=== PATIENT | male | born 1955 | race Caucasian/White ===

== ENCOUNTER 2018-07-05 12:55 | Emergency (ER) | payer OTHER, SELFPAY ==
[2018-07-05 12:56] VITALS: BP 134/70; PULSE 64; RESP 16; TEMP 36.2; O2SAT 98; BMI 21.2
[2018-07-05 13:32] LABS: Absolute Lymphocyte Count 1.28 X10^3/ul (0.83-4.51); Absolute Neutrophil Count 1.8 X10^3/uL (2.0-7.7); Basophil# 0.04 X10^3/uL; Basophil% 1.1 % (0-1); Eosinophils% 5.3 % (0-5); Hematocrit 38.1 % (40-54); Hemoglobin 12.8 g/dl (13.0-16.5); Lymphocyte # 1.28 X10^3/ul (4.0); Lymphocyte % 33.8 % (19-41); Mean Corp Hgb Conc 33.6 g/gl (32-36); Mean Corpuscular Hgb 28.7 pg (27.0-32.0); Mean Corpuscular Volume 85.4 fL (80-94); Mean Platelet Vol. 8.9 fl (6.2-12.0); Monocyte% 13.2 % (0-10); Neutrophil # 1.77 X10^3/uL (2.7-7.7); Neutrophil % 46.6 % (47-70); Platelet Count 291 K/mm3 (150-450); RBC Distribution Width CV 14.1 % (11.6-14.6); RBC Distribution Width SD 43.4 fl (35.1-43.9); Red Blood Count 4.46 M/mm3 (4.6-6.2); White Blood Count 3.8 K/mm3 (4.4-11.0)
[2018-07-05 13:38] LABS: POSITIVE COUNT NO; POSITIVE DIFFERENTIAL NO; POSITIVE MORPHOLOGY NO
[2018-07-05 13:46] LABS: Anion Gap 6 (5-15); BUN 19 mg/dL (7-18); BUN/Creat Ratio 18.8 RATIO (10-20); Calcium,Total 8.6 mg/dL (8.5-10.1); Chloride 107 mmol/L (98-107); Creatinine, Serum 1.01 mg/dL (0.70-1.30); EST Glomerular Filtration Rate 79 mL/min (>60); Est Glom Filt Rate - Afr Amer 96 mL/min (>60); Estimated Creatinine Clearance 68.11 ml/min; Glucose 82 mg/dL (74-106); Potassium 4.2 mmol/L (3.5-5.1); Sodium Level 139 mmol/L (136-145)
--- NOTE | 2018-07-05 13:56 | EKG12_ITS ---
Test Reason : CP Blood Pressure : / mmHG Vent. Rate : 059 BPM Atrial Rate : 059 BPM P-R Int : 142 ms QRS Dur : 086 ms QT Int : 406 ms P-R-T Axes : 061 054 052 degrees QTc Int : 401 ms Sinus bradycardia Otherwise normal ECG Confirmed by EDITH LUGO, GIGI ([id number]), manuscript editor ANNABEL SEQUEIRA ([id number]) on 07/09/2018 10:27:40 AM Referred By: RACIEL/ANIRUDH Confirmed By:GIGI SHARMA MD
--- NOTE | 2018-07-05 13:56 | CT_ITS ---
STUDY: CT ABDOMEN AND PELVIS WITHOUT CONTRAST REASON FOR EXAM: Male, 62 years old. Abdominal pain. Decreased hemoglobin. RADIATION DOSAGE (If Supplied By Facility): CTDIvol = ( 7.69 ) mGy, DLP = ( 330.93 ) mGycm TECHNIQUE: Transaxial images were obtained from the dome of the diaphragm to the symphysis pubis without oral contrast, and without intravenous contrast. Sagittal and coronal images were reconstructed. Individualized dose optimization techniques were used for this CT. COMPARISON: None. FINDINGS: The visualized lung bases are unremarkable. The visualized portions of the heart are within normal limits. Focal dense calcifications seen in the inferior lateral portion of the right lobe of liver most likely representing calcified granulomas. Normal gallbladder and extrahepatic biliary system. Normal spleen. Normal pancreas. Normal bilateral adrenal glands. Normal right kidney. 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 Normal left kidney. There is a small hiatal hernia. Normal small intestine. Normal colon. The appendix is visualized and appears normal. There is scattered atherosclerotic calcification of the abdominal aorta, without a demonstrated aneurysm. Normal inferior vena cava. Normal retroperitoneum. Normal urinary bladder. There are prostatic calcifications. The prostate measures 4.7 cm x 3.1 cm. Normal abdominal wall. There are mild degenerative changes of the visualized lumbar spine. CT/Abdomen/Pelvis without Cont IMPRESSION: Calcified granulomas in the inferior lateral aspect of the right lobe of the liver. 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 Electronically Signed: Dhruv Engle, at 15:50 EDT , Service support ,
[2018-07-05 14:18] LABS: AST(SGOT) 21 U/L (15-37); Alanine Aminotransfer ALT/SGPT 25 U/L (16-61); Albumin, Serum 3.7 g/dL (3.2-5.0); Alkaline Phosphatase 70 U/L (45-117); Bilirubin, Direct 0.07 mg/dL (0.00-0.30); Globulin 3.4 g/dL (2.2-4.2); Lipase 119 U/L (73-393); Protein, Total 7.1 g/dL (6.4-8.2)
--- NOTE | 2018-07-05 14:24 | ED.VISSUMM ---
- ER Visit Summary Date of Service: 07/05/18 Chief Complaint: [] Abdominal pain for months generalized fatigue History of Present Illness: The patient is a 62 M [] has no past history indicates for months has had generalized fatigue intermittent abdominal pain, he had outpatient life scan screening which consisted of what appears to be some screening labs, and ultrasounds of the aorta and other ultrasounds that showed no signs of AAA or peripheral vascular disease he had an elevated testosterone level hemoglobin A1c was 6.7, and he indicates his hemoglobin was low. He tried to make an appoint with her primary care physician and he was instructed it would be better for him to come to the emergency department, he has had no vomiting he is able to eat and drink in general he does not see a physician, he has no known health history Physical Examination: [] 130/70 General, no distress resting comfortably HEENT is generally unremarkable The neck is supple no adenopathy Cardiovascular, regular rate and rhythm Lungs, clear bilateral Abdomen, soft nontender, he has some slight distention to the lower abdominal region, rectal exam shows soft brown stool, exam shows normal testicles nontender Extremities, no clubbing cyanosis or edema Neurologic, awake alert answering questions appropriately moving all 4 extremities Test Results: [] Emergency Department Course and Treatment: [] Given his complaints and his age screening labs CT ultrasound of the scrotum Treatment Plan: [] Disposition: [] Impression: [] This note was generated with [facility] dictation software. It may contain incorrect words, spelling, and punctuation that were not noted in review of the chart prior to signing ED Disposition - Plan for ED Patient: Referrals: NOT,DEFINED [Primary Care Provider] -
--- NOTE | 2018-07-05 14:27 | US_ITS ---
STUDY: SCROTUM ULTRASOUND REASON FOR EXAM: Male, 62 years old. Lower abdominal pain. TECHNIQUE: Ultrasound evaluation of the scrotum was performed with color Doppler and static whitlock-scale imaging. COMPARISON: None. FINDINGS: RIGHT TESTICLE INTRATESTICULAR: There is a normal size of the right testicle. The right testicle measures 4.0 cm x 2.9 cm x 2.5 cm. There is a homogenous echotexture. There is normal arterial and normal venous vascularity. There is no demonstrated right testicular mass or cyst. EXTRATESTICULAR: The epididymis is normal in size. The epididymis head measures 1.7 cm. There is normal vascularity of the epididymis. There is a well-defined cystic structure within the epididymis, without internal echoes, consistent with an epididymal cyst. This measures 3 mm x 3 mm x 3 mm. There is a small hydrocele. There is no demonstrated varicocele. There is no demonstrated extratesticular mass or cyst. LEFT TESTICLE INTRATESTICULAR: There is a normal size of the left testicle. The left testicle measures 4.4 cm x 3.2 cm x 2.6 cm. There is a homogenous echotexture. There is normal arterial and normal venous vascularity. There is no demonstrated left testicular mass or cyst. EXTRATESTICULAR: The epididymis is normal in size. The epididymis head measures 1.6 cm. There is normal vascularity of the epididymis. There is a well-defined cystic structure within the epididymis, without internal echoes, consistent with an epididymal cyst. There is a septated 2.2 cm x 2.1 cm x 1.5 cm left epididymal cyst. There is no demonstrated hydrocele. There is no demonstrated varicocele. There is no demonstrated extratesticular mass or cyst. US/Testicular with Arterial Flow IMPRESSION: Septated 2.2 cm x 2.1 cm x 1.5 Jose G left epididymal cyst. Electronically Signed: Dhruv Engle, at 15:56 EDT , Service support ,
[2018-07-05 15:41] LABS: Bacteria 0 SEEN /hpf (None Seen); Mucous, Urine 0 SEEN /hpf (<or=2+); Red Blood Cells-Urine 0 SEEN /hpf (0-5)
[2018-07-05 15:44] LABS: Color, Urine Straw (Yellow); Glucose, Dipstick Normal (Normal); Ketone-Dipstick Negative (Negative); Leukocyte Esterase-Dipstick Negative /ul (Negative); Nitrite-Dipstick Negative (Negative); Occult Blood-Urine Negative /ul (Negative); Protein-Dipstick Negative (Negative); Urine Bilirubin Dipstick Negative (Negative); Urine Clarity Clear (Clear); Urine Urobilinogen Normal (Normal)
[2018-07-05 15:54] LABS: Squamous Epithelial Cells - UA 0-5 SEEN /hpf (0-5); White Blood Cells 0-5 SEEN /hpf (0-5)
--- NOTE | 2018-07-05 15:54 | ED.VISSUMM ---
- ER Visit Summary Date of Service: 07/05/18 Chief Complaint: []lower Abdominal pain for months History of Present Illness: The patient is a 62 M [] recently had what he describes as lifeline screening test as an outpatient for evaluation of lower abdominal pain fatigue this consisted of ultrasounds of different parts of his body that were generally unremarkable he had abnormal labs are consistent with a high hemoglobin A1c and high testosterone level, he persistent having the abdominal pain he called the primary care physician to follow-up in the office asked him to come to the emergency department. He is been able to eat and drink his bowel and bladder habits have been normal, he does not see a physician he has no past history Physical Examination: [] v signs are within normal range General, no distress resting comfortably HEENT is generally unremarkable The neck is supple no adenopathy Cardiovascular, regular rate and rhythm Lungs, clear bilateral Abdomen, soft nontender, he complains of a nonspecific discomfort in the lower abdomen, the exam shows normal testicles nontender, rectal exam shows soft brown stool normal prostate nontender Extremities, no clubbing cyanosis or edema Neurologic, awake alert answering questions appropriately moving all 4 extremities Test Results: [] Emergency Department Course and Treatment: [] His complaints Of screening evaluations done screening labs are generally unremarkable, CT abdomen pelvis shows generally unremarkable findings that are nonemergent, see those reports , UA is unremarkable, scrotal ultrasound shows nothing acute nothing emergent please see those reports His EKG shows a sinus shows nothing acute troponins negative All the test results the patient the lack of any definitive explanation for his fatigue and his lower abdominal discomfort he does have a slight anemia with hemoglobin of 12 I explained to follow-up with primary care physician he contacted as he more require more definitive management he understands and agrees and will return for change in symptoms, Treatment Plan: [] Disposition: [] Home stable Impression: [] Lower abdominal pain and fatigue etiology unclear This note was generated with [employer] dictation software. It may contain incorrect words, spelling, and punctuation that were not noted in review of the chart prior to signing ED Disposition - Plan for ED Patient: Instructions: ED Abdominal Pain Unkn Cause Male Referrals: NOT,DEFINED [NON-STAFF] - Additional Instructions: Follow-up with the primary care physician who you call this morning return for change in symptoms you will require additional testing and management
--- NOTE | 2018-07-05 15:58 | ED.DEP ---
ED Disposition - Plan for ED Patient: Instructions: ED Abdominal Pain Unkn Cause Male Referrals: NOT,DEFINED [NON-STAFF] - Additional Instructions: Follow-up with the primary care physician who you call this morning return for change in symptoms you will require additional testing and management
[2018-07-05 16:54] VITALS: BP 149/74; PULSE 62; RESP 15; O2SAT 98
== END 2018-07-05 16:54 | disposition home or self-care (01) ==
LOC: ED 14:25
PROVIDERS: Emergency Provider Emergency Medicine
DX: R10.30 Lower abdominal pain, unspecified (principal); Q55.20 Unspecified congenital malformations of testis and scrotum
CPT/HCPCS: 74176; 76870; 80048; 80076; 81001; 83690; 84484; 85025; 93005; 93976; 99283; A4216

== ENCOUNTER 2018-10-19 09:10 | Emergency (ER) | payer OTHER, SELFPAY ==
[2018-10-19 09:10] VITALS: BP 111/71; PULSE 74; RESP 17; TEMP 36.4; O2SAT 97; BMI 20.4
--- NOTE | 2018-10-19 09:32 | EKG12_ITS ---
Test Reason : HEADACHE Blood Pressure : / mmHG Vent. Rate : 058 BPM Atrial Rate : 058 BPM P-R Int : 142 ms QRS Dur : 088 ms QT Int : 416 ms P-R-T Axes : 056 029 047 degrees QTc Int : 408 ms Sinus bradycardia Otherwise normal ECG Confirmed by EDITH LUGO, GIGI ([id number]), newspaper editor managing NUSRAT JOE ([id number]) on 10/22/2018 11:39:59 AM Referred By: SALEEM Confirmed By:GIGI SHARMA MD
[2018-10-19] MEDS: 0.9% Normal Saline 1,000 ML 150 ML IV (09:53)
[2018-10-19 09:55] LABS: Absolute Lymphocyte Count 1.25 X10^3/uL (0.83-4.51); Absolute Neutrophil Count 4.6 X10^3/uL (2.0-7.7); Basophil# 0.03 X10^3/uL; Basophil% 0.4 % (0-1); Eosinophil# 0.32 X10^3/uL; Eosinophils% 4.4 % (0-5); Hematocrit 37.4 % (40-54); Hemoglobin 12.4 g/dL (13.0-16.5); Lymphocyte # 1.25 X10^3/ul (4.0); Lymphocyte % 17.3 % (19-41); Mean Corp Hgb Conc 33.2 g/dL (32-36); Mean Corpuscular Hgb 29.2 pg (27.0-32.0); Mean Corpuscular Volume 88.2 fL (80-94); Mean Platelet Vol. 9.4 fl (6.2-12.0); Monocyte# 0.98 X10^3/uL; Monocyte% 13.6 % (0-10); NRBC Flagged by Analyzer 0 % (0-5); Neutrophil # 4.61 X10^3/uL (2.7-7.7); Neutrophil % 63.9 % (47-70); Platelet Count 208 K/mm3 (150-450); RBC Distribution Width CV 15.5 % (11.6-14.6); RBC Distribution Width SD 50.2 fl (35.1-43.9); Red Blood Count 4.24 M/mm3 (4.6-6.2); White Blood Count 7.2 K/mm3 (4.4-11.0)
[2018-10-19 10:10] LABS: D-Dimer Quantitative (DVT/PE) 2.48 FEU/ug/m (0.27-0.49)
[2018-10-19 10:13] LABS: Anion Gap 5 (5-15); BUN 18 mg/dL (7-18); BUN/Creat Ratio 17.1 RATIO (10-20); Calcium,Total 8.9 mg/dL (8.5-10.1); Chloride 104 mmol/L (98-107); Creatinine, Serum 1.05 mg/dL (0.70-1.30); EST Glomerular Filtration Rate 76 mL/min (>60); Est Glom Filt Rate - Afr Amer 92 mL/min (>60); Estimated Creatinine Clearance 62.83 ml/min; Glucose 92 mg/dL (74-106); Potassium 3.9 mmol/L (3.5-5.1); Sodium Level 139 mmol/L (136-145)
--- NOTE | 2018-10-19 10:13 | CT_ITS ---
STUDY: CTA CHEST REASON FOR EXAM: Male, 62 years old. History of pneumonia. RADIATION DOSAGE (If Supplied By Facility): CTDIvol = ( 24.62 ) mGy, DLP = ( 396.01 ) mGycm TECHNIQUE: The examination was performed with the intravenous administration of 100ml IV Isovue 370. Post-processing of the angiographic images was performed, with multiplanar reformation and 3D reconstruction. Individualized dose optimization techniques were used for this CT. COMPARISON: None. FINDINGS: Normal enhancement of the main pulmonary artery and right and left pulmonary arteries. Normal enhancement of the bilateral peripheral pulmonary arteries. There is no demonstrated pulmonary embolism. Normal thoracic aorta and visualized great vessels. There is no demonstrated aortic dissection. There are calcifications of the coronary arteries. Normal mediastinum. Small right hilar lymph nodes. Normal visualized trachea and bronchi. The lungs are well expanded. Patchy bibasilar infiltrates and/or atelectasis. Normal pleura. There is a 1.3 cm x 5.1 cm lipoma in the right lateral dorsi muscle. There are degenerative changes of thoracic spine. Small hiatal hernia. CT/CTA Chest W/WO Contrast IMPRESSION: Normal CTA chest examination, without a demonstrated pulmonary embolism or arterial dissection. Bibasilar atelectasis and/or infiltrates. Electronically Signed: Dhruv Engle, at 11:18 EDT , Service support ,
--- NOTE | 2018-10-19 10:13 | CT_ITS ---
STUDY: CTA OF THE BRAIN REASON FOR EXAM: Male, 62 years old. Chest pain. Headaches. RADIATION DOSAGE (If Supplied By Facility): CTDIvol = ( 27.28 ) mGy, DLP = ( 840.0 ) mGycm TECHNIQUE: CT angiography was performed with a multi-detector CT scanner. Data acquisition was obtained from the skull base through the vertex following intravenous administration of 100ml; IV Isovue 370. MIP images were reconstructed from the axial data set. Post-processing of the angiographic images was performed, with multiplanar reformation and 3D reconstruction. Individualized dose optimization techniques were used for this CT. COMPARISON: None. FINDINGS: Normal bilateral petrous carotid arteries. There is calcified plaque formation of the right cavernous carotid artery, without a cross-sectional luminal stenosis. There is calcified plaque formation of the left cavernous carotid artery, without a cross-sectional luminal stenosis. Normal right A1 segments of the anterior cerebral artery. Normal left A1 segments of the anterior cerebral artery. Normal intact anterior communicating artery (ACOM). Normal bilateral A2 segments of the anterior cerebral arteries. Normal right M1 and M2 segments of the middle cerebral arteries, with a normal M1 bifurcation. Normal left M1 and M2 segments of the middle cerebral arteries, with a normal M1 bifurcation. Normal right posterior communicating artery (PCOM). Normal left posterior communicating artery (PCOM). Normal bilateral vertebral arteries. Normal basilar artery with a normal basilar bifurcation. The visualized bilateral superior cerebellar (SCA) arteries are normal. Normal bilateral P1, P2 and visualized P3 segments of the posterior cerebral arteries. There is no demonstrated aneurysm of the [place] of [place]. There is no demonstrated abnormality of the visualized brain. Prominence of the right internal jugular venous bulb. CT/CTA Head W/WO Contrast IMPRESSION: Normal [place] of [place] without a demonstrated aneurysm or hemodynamically significant stenosis. Electronically Signed: Dhruv Engle, at 11:21 EDT , Service support ,
[2018-10-19 10:25] LABS: Erythrocyte Sedimentation Rate 12 mm/hr (0-20)
--- NOTE | 2018-10-19 11:27 | ED.DCSUM_ITS ---
- ER Visit Summary Date of Service: 10/19/18 Chief Complaint: [Headache] History of Present Illness: The patient is a 62 M [presents the emergency department with a headache that has had for about 6 days continuously. Patient states came on gradually and he describes it more of a frontal headache that is throbbing in nature. Patient currently rates it maybe 3 or 4 out of 10 but earlier this morning it was like a 7 or 8 out of 10. Patient states that the head hurts more with movement at times. He denies any falls or head injuries. Patient also gives me a history of recently being diagnosed 2 days ago with walking pneumonia and starting doxycycline. Patient's had a little bit of a cough is been mostly nonproductive. He had some chest discomfort 2 days ago but that is mostly resolved now. Had some mild shortness of breath is now resolved. Patient also tells me that 3 weeks ago he was in [place] and had a surgery for a hiatal hernia.] Patient denies any falls or head injuries. He denies any fever. Denies any neck pain. Physical Examination: [HEENT-PERRLA, EOMI. Cranial nerves II through XII grossly intact. TMs clear. Mucous membranes moist. No adenopathy. Cardiovascular-regular rate and rhythm without murmur or ectopy Lungs-clear to auscultation, chest wall stable without crepitus or subcu emphysema Abdomen-normoactive bowel sounds, soft, nontender, no rebound or rigidity, no peritoneal signs. Extremities-intact ?4, normal range of motion, normal pulses, atraumatic] Test Results: [EKG obtained on arrival shows sinus bradycardia with a ventricular rate of 58 bpm. CBC with differential 7.2, hemoglobin 12.4, platelets 208. Chemistries unremarkable. Troponin is less than 0.015. Sed rate was 12. D-dimer was elevated 2.[address] of the chest was obtained which was negative for PE or dissection however it was noted to have some bibasilar atelectasis versus infiltrate. Patient also had a CTA of the brain which essentially was normal.] Emergency Department Course and Treatment: [Patient refused any treatment for his headache as he states that his headaches only about a 2 out of 10 currently. She was given Levaquin 750 mg p.o.] Treatment Plan: [Given suspicion for possible pneumonia we will switch him to Levaquin from doxycycline. Follow-up with his primary care physician 3 to 5 days. Patient advised to push fluids.] Disposition: [Discharged home stable condition.] Impression: [Cephalgia Pneumonia] This note was generated with [employer] dictation software. It may contain incorrect words, spelling, and punctuation that were not noted in review of the chart prior to signing ED Disposition - Plan for ED Patient: Referrals: Care Physician,No Primary [Primary Care Provider] -
--- NOTE | 2018-10-19 11:29 | ED.DEP ---
ED Disposition - Plan for ED Patient: Instructions: HEADACHE, Unspecified, Pneumonia Prescriptions: levoFLOXacin tablet [Levaquin tablet] 750 mg PO DAILY #7 tab Prescription Printed Referrals: Care Physician,No Primary [Primary Care Provider] - Vinh Zee MD [STAFF PHYSICIAN] -
[2018-10-19] MEDS: levoFLOXacin 750 MG Tablet PO (11:44)
[2018-10-19 11:50] VITALS: PULSE 77; RESP 17; O2SAT 96
== END 2018-10-19 11:52 | disposition home or self-care (01) ==
PROVIDERS: Emergency Provider Emergency Medicine
DX: R51 Headache (principal); J18.9 Pneumonia, unspecified organism; R00.1 Bradycardia, unspecified
CPT/HCPCS: 70496; 71275; 80048; 84484; 85025; 85379; 85652; 93005; 96360; 96361; 99283; J7030; Q9967; A4216

== ENCOUNTER 2020-06-30 08:35 | Observation (INO) | payer OTHER, SELFPAY ==
[2020-06-30] VITALS (10 sets, daily range): BP systolic 117–138; BP diastolic 65–74; PULSE 52–66; RESP 16; TEMP 36.2–36.7; O2SAT 98–100; BMI 23.1; BMI 21.2; BMI 27.3
--- NOTE | 2020-06-30 09:04 | EKG12_ITS ---
Test Reason : C.P. ADMIT Blood Pressure : / mmHG Vent. Rate : 053 BPM Atrial Rate : 053 BPM P-R Int : 150 ms QRS Dur : 086 ms QT Int : 414 ms P-R-T Axes : 061 052 054 degrees QTc Int : 388 ms Sinus bradycardia Otherwise normal ECG When compared with ECG of 19-OCT-2018 09:42, No significant change was found Confirmed by REBECCA LUGO, ANGELI ([id number]), editor newspaper ANNABEL SEQUEIRA ([id number]) on 07/01/2020 1:12:59 PM Referred By: ARMANDO Confirmed By:ANGELI FERNANDEZ MD
--- NOTE | 2020-06-30 09:04 | ED.DCSUM_ITS ---
History of Present Illness Chief Complaint: Chest Pain Informant: Patient Onset: Days Context: Gradual Onset Timing: Waxes and wanes Current Severity: Mild Maximum Severity: Moderate Narrative: Patient presents secondary to chest pain. Patient reportedly has been having intermittent chest pain for quite some time. Pain has been more constant over the past 3 days. 2 days ago he states pain was radiating down his left arm but that seems to have subsided. He denies significant shortness of breath currently but does note that he has been getting more winded with activity over the last several months. Past Medical History - Allergies and Home Meds Allergies/Adverse Reactions: Allergies No Known Allergies Allergy (Verified 06/30/20 08:40) Lives: With Family Smoking Status: Never smoker - Family History Maternal Family History: Reports: No pertinent history Paternal Family History: Reports: No pertinent history Review of Systems General: Denies: Chills, Fever Eyes: Denies: Visual changes - bilaterally ENT: Reports: Right ear pain Cardiovascular: Reports: Chest pain Respiratory: Reports: Dyspnea. Denies: Cough Gastrointestinal: Denies: Abdominal pain, Nausea, Vomiting, Diarrhea Genitourinary: Denies: Dysuria Musculoskeletal: Denies: Extremity Pain Skin: Denies: Rash Neurological: Denies: Headache Hematologic: Denies: Easy bruising, Easy bleeding Allergy: Denies: Uticaria Physical Exam Vital Signs/Narrative: Vital Signs Temp Pulse Resp BP Pulse Ox 06/30/20 08:36 97.2 F L 66 16 138/69 H 99 Inital Vital Signs reviewed: Yes General: Well nourished, Well developed Head: Normocephalic ENT: - - Cerumen impaction right ear Cardiovascular: Regular rate, Regular rhythm Respiratory: No distress, CTA bilaterally, Chest nontender Abdomen: Soft, Nontender Extremities: Nontender Skin: Normal color Neurological: Alert, Oriented x3 Psychological: Normal affect Diagnostic/Tx/Re-eval Chest X-Ray - ED: 1 View, Read by ED Physician, - - Hyperinflation. No infiltrate. Impressions Chest X-Ray 06/30/20 09:10 IMPRESSION: Hyperinflation. The lungs are clear. Electronically Signed: Dhruv Engle MD at 9:33 EDT , Service support , 06/30/20 09:10 Chest 1 View (Portable) [RAD] Stat Laboratory Results 06/30/20 06/30/20 06/30/20 08:45 08:45 08:45 WBC 4.4 RBC 4.29 L Hgb 12.7 L Hct 39.4 L MCV 91.8 MCH 29.6 MCHC 32.2 RDW Std Deviation 50.8 H RDW Coeff of Emmanuel 15.1 H Plt Count 266 MPV 9.0 Immature Gran % (Auto) 0.200 Neut % (Auto) 56.2 Lymph % (Auto) 25.9 [place] % (Auto) 11.0 H Eos % (Auto) 6.0 H Baso % (Auto) 0.7 Absolute Neuts (auto) 2.5 Absolute Lymphs (auto) 1.13 Nucleated RBC % 0 D-Dimer Quant (PE/DVT) <= 0.27 Sodium 140 Potassium 4.0 Chloride 107 Carbon Dioxide 29.0 Anion Gap 4 L BUN 22 H Creatinine 1.14 Estim Creat Clear Calc 63.33 Est GFR (MDRD) Af Amer 83 Est GFR (MDRD) Non-Af 69 BUN/Creatinine Ratio 19.3 Glucose 74 Calcium 9.0 Troponin I < 0.015 - EKG Initial EKG Interpretation: Sinus Rhythm - Sinus at 67 with no acute ischemia. - Medical Decision Making Patient was given aspirin on arrival. Debrox drops were placed to the right ear and his right ear was irrigated. Cerumen was removed. Portable chest x-ray reveals chronic changes with hyperinflation. Initial blood work is negative including normal troponin and D-dimer. Patient story is certainly concerning for cardiac etiology. Patient will be admitted to observation for cycling of enzymes and possible stress test. ED Disposition - Plan for ED Patient: Disposition: Acute Care Hospital [facility] Diagnosis: Chest pain
--- NOTE | 2020-06-30 09:10 | RAD_ITS ---
STUDY: X-RAY CHEST REASON FOR EXAM: Male, 64 years old. Chest pain TECHNIQUE: Single AP portable view of the chest. COMPARISON: None. FINDINGS: EKG electrodes are seen. Hyperinflation. The lungs are clear. There is no demonstrated pleural abnormality. Normal size heart. Normal mediastinum and martín. Normal visualized pulmonary arteries. There is atherosclerotic calcification of the aortic arch with tortuosity. Normal visualized thoracic spine. Normal visualized ribs, clavicles, and shoulders. There is no demonstrated abnormality of the visualized soft tissue structures of the upper abdomen. RAD/Chest 1 View (Portable) IMPRESSION: Hyperinflation. The lungs are clear. Electronically Signed: Dhruv Engle MD at 9:33 EDT , Service support ,
[2020-06-30 09:11] LABS: Absolute Lymphocyte Count 1.13 X10^3/uL (0.83-4.51); Absolute Neutrophil Count 2.5 X10^3/uL (2.0-7.7); Basophil# 0.03 X10^3/uL; Basophil% 0.7 % (0-1); Eosinophil# 0.26 X10^3/uL; Hematocrit 39.4 % (40-54); Hemoglobin 12.7 g/dL (13.0-16.5); Lymphocyte # 1.13 X10^3/ul (4.0); Lymphocyte % 25.9 % (19-41); Mean Corp Hgb Conc 32.2 g/dL (32-36); Mean Corpuscular Hgb 29.6 pg (27.0-32.0); Mean Corpuscular Volume 91.8 fL (80-94); Monocyte# 0.48 X10^3/uL; NRBC Flagged by Analyzer 0 % (0-5); Neutrophil # 2.45 X10^3/uL (2.7-7.7); Neutrophil % 56.2 % (47-70); Platelet Count 266 K/mm3 (150-450); RBC Distribution Width CV 15.1 % (11.6-14.6); RBC Distribution Width SD 50.8 fl (35.1-43.9); Red Blood Count 4.29 M/mm3 (4.6-6.2); White Blood Count 4.4 K/mm3 (4.4-11.0)
[2020-06-30] MEDS: Carbamide Peroxide 15 ML Bottle 5 DRP OTIC (09:22)
[2020-06-30] MEDS: Aspirin 81 MG TAB.CHEW 324 MG PO (09:22)
[2020-06-30 09:26] LABS: Anion Gap 4 (5-15); BUN 22 mg/dL (7-18); BUN/Creat Ratio 19.3 RATIO (10-20); Chloride 107 mmol/L (98-107); Creatinine, Serum 1.14 mg/dL (0.70-1.30); EST Glomerular Filtration Rate 69 mL/min (>60); Est Glom Filt Rate - Afr Amer 83 mL/min (>60); Estimated Creatinine Clearance 63.33 ml/min; Glucose 74 mg/dL (74-106); Sodium Level 140 mmol/L (136-145)
[2020-06-30 09:28] LABS: D-Dimer Quantitative (DVT/PE) <= 0.27 FEU/ug/m (0.27-0.49)
--- NOTE | 2020-06-30 09:55 | NURSING ---
DR AGUILAR FOR DR MAIN
--- NOTE | 2020-06-30 10:00 | PCM.HP.STD ---
Problem List (1) Chest pain Status: Acute Qualifiers: Chest pain type: unspecified Qualified Code(s): R07.9 - Chest pain, unspecified History of Present Illness Date of Admission: 06/30/20 Chief Complaint: Chest pain - 3 days The patient is a 64 year old M with no significant past medical history who comes in with complaints of chest pain that started 3 days prior to admission. Patient has been having intermittent chest pain that comes on and off. Since Monday, he has been having left-sided dull chest pain, that radiates sometimes down his left upper extremity. Denied any history of cardiac problems. He denied any dizziness or palpitations or nausea or diaphoresis. He denied orthopnea or PND or exertional dyspnea. Vitals in the ED was stable. Blood work was unremarkable except for anemia of 12.7, just above his baseline. EKG shows no acute ST-T changes. CXR showed hyperinflation, lungs c clear. Past Medical History Allergies No Known Allergies Allergy (Verified 06/30/20 08:40) Home Medications: Ambulatory Orders Medication Instructions Recorded Meloxicam 15 mg PO DAILY 06/30/20 Surgical History: herniorrhaphy, rotator cuff repair, - - Status post hiatal hernia repair, left leg surgery Lives: With Family Smoking Status: Never smoker Tobacco Use: Non-smoker Alcohol: None Drugs: None - *Family History Maternal History Items: No pertinent history Paternal History Items: No pertinent history Review of Systems Constitutional: Denies: Anorexia, Chills, Fever, Night Sweats, Malaise, Weakness, Weight Change, Fatigue Eyes: Denies: Cataracts HEENT: Denies: Difficulty Hearing, Difficulty Swallowing, Head Aches, Hearing Changes, Nasal bleeding, Sinus Congestion, Sinus Drainage, Visual Changes Cardiovascular: Reports: Chest Pain, Chest Tightness. Denies: Claudication, Edema, Light Headedness, Orthopnea, Palpitations, Paroxysmal Noc. Dyspnea Respiratory: Denies: Cough, Shortness of breath at rest, Sputum production Gastrointestinal: Denies: Abdominal Pain, Constipation, Hematemesis, Hematochezia, Nausea, Vomiting Genitourinary: Denies: Dysuria Musculoskeletal: Denies: Joint Pain, Joint Tenderness Skin: Denies: Rash, Wounds Neurological: Denies: Numbness, Tingling, Focal weakness Psychiatric: Denies: Anxiety, Depression, Homicidal Ideations, Suicidal Ideations Hematologic/ Lymphatic: Denies: Easy Bruising, Easy Bleeding VTE Information - Inpt Only VTE Present on Admission: No VTE Pharm Prophylaxis ordered?: Yes Patient Problems: Active and Suspected Problems Chest pain (Acute) Objective: Physical exam: General: Alert, Oriented x3, Cooperative, No apparent distress, Well developed HEENT: Atraumatic Oral: Moist Mucosa Neck: Supple Lungs: Clear to auscultation Cardiovascular: HS I+II, regular, no murmurs Abdomen: Bowel Sounds Present, Soft, Non Tender Extremities: No edema Skin: No rashes, No breakdown Neurological: Grossly intact Psych/Mental Status: Appropriate - Physical Exam Vitals/I&O's: Vital Signs Temp Pulse Resp BP Pulse Ox 97.2 F L 66 16 138/69 H 99 06/30/20 08:36 06/30/20 08:36 06/30/20 08:36 06/30/20 08:36 06/30/20 08:36 Oxygen Delivery Method Room Air Weight: 69.2 kg Body Mass Index (BMI) 23.1 Laboratory Results 06/30/20 08:45: WBC 4.4, RBC 4.29 L, Hgb 12.7 L, Hct 39.4 L, MCV 91.8, MCH 29.6, MCHC 32.2, RDW Std Deviation 50.8 H, RDW Coeff of Emmanuel 15.1 H, Plt Count 266, MPV 9.0, Immature Gran % (Auto) 0.200, Neut % (Auto) 56.2, Lymph % (Auto) 25.9, [place] % (Auto) 11.0 H, Eos % (Auto) 6.0 H, Baso % (Auto) 0.7, Absolute Neuts (auto) 2.5, Absolute Lymphs (auto) 1.13, Nucleated RBC % 0 06/30/20 08:45: D-Dimer Quant (PE/DVT) <= 0.27 06/30/20 08:45: Sodium 140, Potassium 4.0, Chloride 107, Carbon Dioxide 29.0, Anion Gap 4 L, BUN 22 H, Creatinine 1.14, Estim Creat Clear Calc 63.33, Est GFR (MDRD) Af Amer 83, Est GFR (MDRD) Non-Af 69, BUN/Creatinine Ratio 19.3, Glucose 74, Calcium 9.0, Troponin I < 0.015 Assessment/Plan All Active Problems Chest pain (Acute) 1. Acute chest pain, atypical, no history of previous cardiovascular disease EKG showed no acute ST-T changes. Initial troponin is negative. Will continue to monitor on telemetry, trend troponins Aspirin 81 mg p.o. daily, nitro as needed, Nuclear Stress test in a.m. 2. DVT PPx- Heparin SC Inpatient E&M: 24849 Init Hosp L3
[2020-06-30] MEDS: Heparin Injection (Vial) 5,000 UNIT/ML VIAL 5000 UNIT SC ×2 (11:32→21:11)
--- NOTE | 2020-06-30 11:48 | EKG12_ITS ---
Test Reason : CP Blood Pressure : / mmHG Vent. Rate : 050 BPM Atrial Rate : 050 BPM P-R Int : 142 ms QRS Dur : 096 ms QT Int : 442 ms P-R-T Axes : 060 056 062 degrees QTc Int : 402 ms Sinus bradycardia Confirmed by EDITH LUGO, GIGI ([id number]), editor at large ANNABEL SEQUEIRA ([id number]) on 07/02/2020 11:38:54 AM Referred By: ISIDRA Confirmed By:GIGI SHARMA MD
[2020-06-30] MEDS: MELATONIN 3 MG TABLET PO (21:11)
[2020-06-30] MEDS: Acetaminophen 325 MG Tablet 650 MG PO (21:11)
[2020-07-01 01:55] VITALS: BP 107/60; PULSE 52; RESP 18; TEMP 36.4; O2SAT 98
--- NOTE | 2020-07-01 02:10 | EKGRS_ITS ---
Test Reason : CP Blood Pressure : / mmHG Vent. Rate : 067 BPM Atrial Rate : 067 BPM P-R Int : 142 ms QRS Dur : 086 ms QT Int : 392 ms P-R-T Axes : 070 065 061 degrees QTc Int : 414 ms Normal sinus rhythm Normal ECG Confirmed by EDITH LUGO, GIGI ([id number]), editor index ANNABEL SEQUEIRA ([id number]) on 07/02/2020 11:19:34 AM Referred By: DC Confirmed By:GIGI SHARMA MD
[2020-07-01 02:46] LABS: Absolute Neutrophil Count 2.9 X10^3/uL (2.0-7.7); Basophil# 0.04 X10^3/uL; Basophil% 0.7 % (0-1); Eosinophil# 0.27 X10^3/uL; Eosinophils% 4.9 % (0-5); Hemoglobin 12.8 g/dL (13.0-16.5); Lymphocyte % 30.9 % (19-41); Mean Corp Hgb Conc 32.8 g/dL (32-36); Mean Corpuscular Hgb 29.5 pg (27.0-32.0); Mean Corpuscular Volume 89.9 fL (80-94); Monocyte# 0.61 X10^3/uL; Monocyte% 11.1 % (0-10); NRBC Flagged by Analyzer 0 % (0-5); Neutrophil # 2.88 X10^3/uL (2.7-7.7); Neutrophil % 52.4 % (47-70); Platelet Count 235 K/mm3 (150-450); RBC Distribution Width CV 14.6 % (11.6-14.6); RBC Distribution Width SD 48.1 fl (35.1-43.9); Red Blood Count 4.34 M/mm3 (4.6-6.2); White Blood Count 5.5 K/mm3 (4.4-11.0)
[2020-07-01] MEDS: Morphine 2 MG/ML Syringe 1 MG IV (02:53)
[2020-07-01] MEDS: 0.9% Saline Lock 10 ML Syringe IV (02:54)
[2020-07-01 03:00] VITALS: PULSE 51
[2020-07-01 03:05] LABS: AST(SGOT) 15 U/L (15-37); Alanine Aminotransfer ALT/SGPT 22 U/L (16-61); Albumin, Serum 3.3 g/dL (3.2-5.0); Alkaline Phosphatase 66 U/L (45-117); Anion Gap 3 (5-15); BUN 26 mg/dL (7-18); BUN/Creat Ratio 24.8 RATIO (10-20); Calcium,Total 8.7 mg/dL (8.5-10.1); Chloride 109 mmol/L (98-107); Creatinine, Serum 1.05 mg/dL (0.70-1.30); EST Glomerular Filtration Rate 75 mL/min (>60); Est Glom Filt Rate - Afr Amer 91 mL/min (>60); Estimated Creatinine Clearance 68.76 ml/min; Globulin 3.2 g/dL (2.2-4.2); Glucose 88 mg/dL (74-106); Potassium 4.3 mmol/L (3.5-5.1); Protein, Total 6.5 g/dL (6.4-8.2); Sodium Level 138 mmol/L (136-145)
[2020-07-01 05:56] VITALS: BP 119/70; PULSE 57; RESP 16; TEMP 36.4; O2SAT 98
[2020-07-01] MEDS: Aspirin 81 MG TAB.CHEW PO (06:08)
[2020-07-01 07:00] VITALS: PULSE 55
--- NOTE | 2020-07-01 10:16 | STRESSREP_ITS ---
Stress Test Report Date: 07-01-2020 Procedure: Exercise tolerance test/imaging study Indications: Chest pain Consent: Per the patient Procedure: The patient exercised on a [place] protocol for 11 minutes completing Stage III and 2 minutes of Stage IV achieving a peak heart rate of 129 bpm (82% predicted maximal heart rate) with a peak blood pressure 140/66 mmHg and a peak MET capacity of 13 METs. The baseline ECG demonstrated sinus bradycardia. The peak exercise ECG demonstrated no obvious ECG changes. There were no cardiac dysrhythmias pretest, during exercise, or recovery. The functional capacity was considered good. There was chest discomfort pretest, during exercise, and recovery. The examination was discontinued secondary to fatigue. Impression: 1. Technically adequate (percent predicted maximal heart rate greater than 85%) exercise tolerance test 2. Peak exercise ECG with no obvious ECG changes 3. There were no cardiac dysrhythmias pretest, during exercise, or recovery 4. Nuclear images pending Myocardial perfusion imaging study: Technique: The patient was injected with 11.3 mCi of technetium 99m Cardiolite and subseq uently rest SPECT Cardiolite nuclear imaging was obtained in the horizontal long, vertical long, and short axis views. The patient exercised on a [place] protocol for 11 minutes completing Stage III and 2 minutes of Stage IV achieving a peak heart rate of 129 bpm (82% predicted maximal heart rate) with a peak blood pressure 140/66 mmHg and a peak MET capacity of 13 METs. The patient was injected with 33.9 mCi of technetium 99m Cardiolite and subsequently stress SPECT Cardiolite nuclear imaging was obtained in the horizontal long, vertical long, and short axis views. A gated Cardiolite study at peak stress was obtained. Interpretation: Rest and stress SPECT Cardiolite nuclear imaging status post realignment, normalization, and attenuation correction, demonstrates relative uniform tracer uptake and myocardial perfusion appearing within normal limits. There is end systolic thickening and brightening. The gated Cardiolite study demonstrates myocardial thickening and inward wall motion. The reported LVEF is 69%. Impression: 1. Rest and stress SPECT Cardiolite nuclear imaging demonstrate relative uniform tracer uptake and myocardial perfusion appearing within normal limits. 2. The gated Cardiolite study reports an LVEF of 69%. This note was generated with [employer] software. It may contain incorrect words, spelling, and punctuation that were not noted in checking the note before signing.
[2020-07-01 10:25] VITALS: BP 127/70; PULSE 65; RESP 16; TEMP 36.3; O2SAT 99
--- NOTE | 2020-07-01 12:25 | DCINST_ITS ---
- Discharge Diagnoses Current Active Problems: Current Active and Chronic Problems Chest pain (Acute) You will use the following diet at home:: No restrictions Discharge Activity: Return to Normal Activity Call your doctor if you observe: Shortness of breath, Dizziness, Fainting spells, Chest pain Allergies/Adverse Reactions: Allergies No Known Allergies Allergy (Verified 06/30/20 08:40) Medications to take at Discharge Meloxicam 15 mg PO DAILY 06/30/20 Primary Care Physician: Care Physician,No Primary [Primary Care Provider] - Please follow up with your Primary Care Physician in: 1 Week Test Results: Test results from this visit will be discussed in further detail at your follow- up appointment, if applicable. Proposed Discharge Date: 07/01/20
--- NOTE | 2020-07-01 12:29 | PCM.DC.SUM ---
<Tika Ellington LOCKSTITCH HEMMER - Last Filed: 07/01/20 12:32> Discharge Date and Diagnosis - Problem List Patient Problems: Active and Suspected Problems Chest pain (Acute) Date of Admission: 06/30/20 Date of Discharge: 07/01/20 - Primary Discharge Diagnosis Acute Problems: Active Problems 1. Atypical chest pain, ACS ruled out Hospital Course and Treatment Imaging Results: Diagnostic Data Chest X-Ray 06/30/20 09:10 IMPRESSION: Hyperinflation. The lungs are clear. Electronically Signed: Dhruv Engle MD at 9:33 EDT , Service support , Operations: None Procedures: Stress test Summary of Care Provided: The patient is a 64 year old M admitted 06/30/20 due to chest pain. 1. Atypical chest pain, ACS ruled out-troponin negative. EKG without ST-T changes. Patient underwent nuclear stress test which was negative for ischemia, gated ejection fraction 69%. Suspect pain is musculoskeletal in nature based on patient's description. He is on meloxicam at baseline. May use as needed Tylenol as well. Follow-up with PCP in 1 week. Patient seen and examined prior to discharge. Physical assessment as noted below. Patient is stable for discharge with follow up recommendations as noted above. This patient was seen by Tika Ellington NP-C under the supervision of Dr. Waller. Patient Problems: Active and Suspected Problems Chest pain (Acute) - Physical Exam Vitals/I&O's: Vital Signs Temp Pulse Resp BP Pulse Ox 97.4 F L 65 16 127/70 H 99 07/01/20 10:25 07/01/20 10:25 07/01/20 10:25 07/01/20 10:25 07/01/20 10:25 Oxygen Delivery Method Room Air Weight: 131 lb 8 oz Body Mass Index (BMI) 27.3 Intake and Output for Last 24 Hours 06/29/20 06/30/20 07/01/20 23:59 23:59 23:59 Intake Total 940 / 940 300 / 300 Balance 940 / 940 300 / 300 General: Alert, Oriented x3, Cooperative HEENT: Atraumatic, PERRLA, EOMI, Normocephalic Neck: Supple, No JVD, Negative Carotid Bruits Lungs: Clear to auscultation, Normal air movement Cardiovascular: Regular rate, No murmurs Abdomen: Bowel Sounds Present, Soft, Non Tender, Non-Distended Extremities: No clubbing, No cyanosis, No edema, Capillary Refill Less than 3 Seconds Skin: No rashes, No breakdown Musculoskeletal: No Tenderness to Palpation of Joints or Extremities Neurological: Cranial nerves II-XII grossly intact, Neuro grossly intact Psych/Mental Status: Normal Affect, Appropriate Laboratory Results 06/30/20 12:00: Troponin I < 0.015 06/30/20 14:35: Troponin I < 0.015 07/01/20 02:40: WBC 5.5, RBC 4.34 L, Hgb 12.8 L, Hct 39.0 L, MCV 89.9, MCH 29.5, MCHC 32.8, RDW Std Deviation 48.1 H, RDW Coeff of Emmanuel 14.6, Plt Count 235, MPV 9.0, Immature Gran % (Auto) 0.000, Neut % (Auto) 52.4, Lymph % (Auto) 30.9, [place] % (Auto) 11.1 H, Eos % (Auto) 4.9, Baso % (Auto) 0.7, Absolute Neuts (auto) 2.9, Absolute Lymphs (auto) 1.70, Nucleated RBC % 0 07/01/20 02:40: Sodium 138, Potassium 4.3, Chloride 109 H, Carbon Dioxide 26.0, Anion Gap 3 L, BUN 26 H, Creatinine 1.05, Estim Creat Clear Calc 68.76, Est GFR (MDRD) Af Amer 91, Est GFR (MDRD) Non-Af 75, BUN/Creatinine Ratio 24.8 H, Glucose 88, Calcium 8.7, Total Bilirubin 0.50, AST 15, ALT 22, Alkaline Phosphatase 66, Total Protein 6.5, Albumin 3.3, Globulin 3.2, Albumin/Globulin Ratio 1.0 07/01/20 02:40: Troponin I < 0.015 Current Medications Acetaminophen (Acetaminophen 325 Mg Tablet) 650 mg PO Q6H PRN PRN PRN Reason: Pain Score 1-10/Temp > 100.7 F Last Admin: 06/30/20 21:11 Dose: 650 mg Documented by: Aspirin (Aspirin 81 Mg Tab.Chew) 81 mg PO DAILY@0800 [facility] Last Admin: 07/01/20 06:08 Dose: 81 mg Documented by: Heparin Sodium (Porcine) (Heparin Injection (Vial) 5,000 Unit/Ml Vial) 5,000 unit SC Q12 [facility] Last Admin: 07/01/20 11:26 Dose: Not Given Documented by: Sodium Chloride () 250 mls @ 15 mls/hr IV .[id number] PRN PRN Reason: Saline Flush Sodium Chloride () 250 mls @ 15 mls/hr IV .[id number] PRN PRN Reason: Additional IVPB Infusion Melatonin (Melatonin 3 Mg Tablet) 3 mg PO QHS PRN PRN Reason: INSOMNIA Last Admin: 06/30/20 21:11 Dose: 3 mg Documented by: Morphine Sulfate (Morphine 2 Mg/Ml Syringe) 1 mg IV Q3H PRN PRN PRN Reason: pain 6-10 Nitroglycerin (Nitroglycerin (Inpatient Use) 0.4 Mg Tab.Subl) 0.4 mg SL Q5M PRN PRN Reason: CARDIAC/CHEST PAIN Ondansetron HCl (Ondansetron 4 Mg/2 Ml Vial) 4 mg IV Q8H PRN PRN PRN Reason: NAUSEA/VOMITING Sodium Chloride (0.9% Saline Lock 10 Ml Syringe) 10 - 40 ml IV UD PRN PRN Reason: SALINE FLUSH Last Admin: 07/01/20 02:54 Dose: 10 ml Documented by: Discharge Diet: Low fat/ Low Cholesterol Discharge Activity: Return to Normal Activity Call your doctor if you observe: Shortness of breath, Dizziness, Fainting spells, Chest pain Home Medications: Medications to take at Discharge Meloxicam 15 mg PO DAILY 06/30/20 Primary Care Physician: Care Physician,No Primary [Primary Care Provider] - Please follow up with your Primary Care Physician in: 1 Week Disposition: Home Minutes spent on discharge:: 35 Patient Condition:: Stable Medical Necessity - Tobacco Use Smoking Status: Never smoker Tobacco Use: Non-smoker Meaningful Use Info Meaningful Use Diagnoses (Choose all that apply): None applicable <Gabriela Waller - Last Filed: 07/02/20 08:07> Discharge Date and Diagnosis - Primary Discharge Diagnosis Acute Problems: Active Problems Chest pain (Acute) Hospital Course and Treatment Summary of Care Provided: This patient was seen in conjunction with Tika Ellington NP. I have independently interviewed and examined the patient and reviewed pertinent historical, laboratory, and other data. Please refer to her note for patient's presentation, findings, and recommendations. 64 year old M with no significant past medical history who comes in with complaints of chest pain that started 3 days prior to admission. Patient has been having intermittent chest pain that comes on and off. However, it became persistent and radiated down his left arm. Denied any history of cardiac problems. He denied any dizziness or palpitations or nausea or diaphoresis.Admitting EKG showed no acute ST-T changes. His troponins were negative. He underwent a nuclear stress test that was negative. On the day of discharge, patient was seen and examined. He denied any new complains. Physical Exam: Gen: Comfortable, not pale, not jaundiced, alert oriented x3 CVS:HS I +II, regular, no murmurs RESP: CTA GI: BS present and normal, nontender, no palpable organs EXT:No edema - Physical Exam Vitals/I&O's: Vital Signs Temp Pulse Resp BP Pulse Ox 97.4 F L 65 16 127/70 H 99 07/01/20 10:25 07/01/20 10:25 07/01/20 10:25 07/01/20 10:25 07/01/20 10:25 Oxygen Delivery Method Room Air Weight: 59.647 kg Body Mass Index (BMI) 27.3 Intake and Output for Last 24 Hours 06/30/20 07/01/20 07/02/20 23:59 23:59 23:59 Intake Total 940 / 940 300 / 300 Balance 940 / 940 300 / 300 OBSV E&M: [id number] Observation care discharge
== END 2020-07-01 12:28 | disposition home or self-care (01) ==
LOC: ED 09:45 → PCU 10:22
PROVIDERS: Nurse Practitioner Family; Admitting Provider Internal Medicine; Emergency Provider Emergency Medicine; Visit Provider Internal Medicine
DX: R07.89 Other chest pain (principal); M79.602 Pain in left arm; R00.1 Bradycardia, unspecified; D64.9 Anemia, unspecified; Z79.1 Long term (current) use of non-steroidal anti-inflammatories (NSAID)
CPT/HCPCS: 36415; 71045; 78452; 80048; 80053; 84484; 85025; 85379; 93005; 93017; 96372; 96374; 97802; 99218; 99285; A9500; A4216; G0378